=== PATIENT | female | born 1995 | race Caucasian/White ===

== ENCOUNTER 2016-12-25 20:33 | Emergency (ER) | payer OTHER ==
[~2016-12-25] VITALS: Ht 170.2 cm; Wt 63.6 kg
[2016-12-25 20:35] VITALS: TEMP 98.3
[2016-12-25] MEDS ORDERED: HUMIRA40 MG/0.1 (20:39)
[2016-12-25] MEDS ORDERED: TRINESSA 281 TAB PO (20:39)
[2016-12-25] MEDS ORDERED: LEXAPRO 5MG5 MG (20:39)
[2016-12-25] MEDS ORDERED: L-METHYLFOLATE7.5 MG (20:40)
[2016-12-25] MEDS ORDERED: BALSALAZIDE DI750 MG (20:43)
[2016-12-25 21:26] LABS: BASO # 0.1 (0.0-0.2); BASO % 1.5 % (0.0-2.0); EOS # 0.6 (0.0-0.7); EOS % 8.5 % (0-4.0); GRAN % 45.7 % (42.2-75.2); HEMATOCRIT 36.5 % (37.0-47.0); HEMOGLOBIN 12.1 g/dl (12.5-16.0); LYMPH # 2.3 (1.2-3.4); LYMPH % 34.7 % (20.0-51.0); MEAN CELL VOLUME 96 fl (80.0-100.0); MEAN CORPUSCULAR HEMOGLOBIN 32 pg (27.0-31.0); MEAN CORPUSCULAR HGB CONC 33 g/dl (33.0-37.0); MONO # 0.6 (0.1-0.6); MONO % 9.4 % (1.7-9.3); PLATELET COUNT 198 K/mm3 (130-400); RED BLOOD COUNT 3.82 M/mm3 (4.10-5.30); REDCELL DISTRIBUTION WIDTH-CV 12.9 % (11.5-14.5); WHITE BLOOD COUNT 6.6 K/mm3 (4.8-10.8)
[2016-12-25 21:42] LABS: ADJUSTED CALCIUM 9.2 mg/dL (8.4-10.2); ALANINE AMINOTRANSFERASE 23 U/L (9-52); ALBUMIN 4.2 gm/dL (3.5-5.0); ALKALINE PHOSPHATASE 40 U/L (50-136); ANION GAP 10 mmol/L (7-16); BILIRUBIN,TOTAL 0.5 mg/dL (0.0-1.0); BLOOD UREA NITROGEN 18 mg/dL (7-17); C-REACTIVE PROTEIN < 0.5 mg/dL (0.0-0.9); CALCIUM 9.4 mg/dL (8.4-10.2); CARBON DIOXIDE 27 mmol/L (22-30); CHLORIDE 101 mmol/L (98-107); CREATININE, serum 0.81 mg/dL (0.52-1.25); GLUCOSE 86 mg/dL (74-106); LIPASE 240 U/L (23-300); POTASSIUM 3.6 mmol/L (3.4-5.0); SODIUM 139 mmol/L (137-145); TOTAL PROTEIN 7.3 gm/dL (6.4-8.2)
[2016-12-25 22:01] LABS: PH 7 (5-8); URINE APPEARANCE Hazy; URINE BACTERIA Rare /hpf; URINE BILIRUBIN Negative (NEGATIVE); URINE BLOOD Negative (NEGATIVE); URINE COLOR Yellow; URINE GLUCOSE Negative (NEGATIVE); URINE KETONE Negative (NEGATIVE); URINE RBC 0-2 /hpf; URINE UROBILINOGEN Negative (NEGATIVE)
[2016-12-25] MEDS ORDERED: PERCOCET 325 MG1 TA2 PO (23:03)
[2016-12-25] MEDS ORDERED: PHENERGAN 25 TA25 MG PO (23:03)
[2016-12-25 23:45] VITALS: BP 105/62; PULSE 59
== END 2016-12-25 23:47 | disposition home or self-care (01) ==
LOC: COL.ER 20:33
PROVIDERS: Physician Assistant
DX: R10.32 Left lower quadrant pain (principal)
CPT/HCPCS: J1170; J2550; J7030

== ENCOUNTER → 2017-03-18 | Outpatient (CLI) | payer OTHER ==
[~2017-03-18] MED LIST: BALSALAZIDE DI750 MG; HUMIRA40 MG/0.1; L-METHYLFOLATE7.5 MG; LEXAPRO 5MG5 MG; PERCOCET 325 MG1 TA2 PO; PHENERGAN 25 TA25 MG PO; TRINESSA 281 TAB PO
== END ==
LOC: BHSO 12:52
DX: F31.81 Bipolar II disorder (principal)
CPT/HCPCS: 90791-AI

== ENCOUNTER → 2017-04-15 | Outpatient (CLI) | payer OTHER | LOC: BHSO 08:33 | DX: F31.81 Bipolar II disorder (principal) ==

== ENCOUNTER → 2017-06-11 | Outpatient (CLI) | payer OTHER | LOC: BHSO 08:34 | DX: F31.81 Bipolar II disorder (principal) | CPT/HCPCS: G0463 ==